=== PATIENT | female | born 1990 | race American Indian/Alaskan Native ===

== ENCOUNTER 2021-11-15 21:53 | Emergency (ER) | payer SELFPAY ==
[2021-11-15] MEDS ORDERED: ONDANSETRON 4 MG/2 ML INJ IV ONE (23:12)
[2021-11-15] MEDS ORDERED: SODIUM CHLORIDE 0.9% 1000 ML 1,000 ML IV ONE (23:12)
--- NOTE | 2021-11-15 23:15 | Emergency Department Report ---
<JUSTINO ROSALES - Last Filed: 11/16/21 03:23> ED General Adult HPI - General Chief complaint: Nausea/Vomiting/Diarrhea Stated complaint: POSS STOMACH VIRUS, NAUSEA, VOMITING Time Seen by Provider: 11/15/21 23:14 Source: patient, EMS Mode of arrival: Stretcher Limitations: No Limitations - History of Present Illness Initial comments: Patient 34-year-old female who presents with 4 days of nausea vomiting diarrhea. States treated at [facility] diagnosed with gastroenteritis 3 days ago. Patient states taking Zofran at home however symptoms are not improved. He states nocturnal fever no Tmax noted at home. No fever noted in triage today. Current symptoms include 4/10 generalized abdominal pain with cramping nausea vomiting and diarrhea. Patient states not tolerating p.o. intake. Patient denies any head denies history of GERD colitis or diverticulitis. Patient denies vaginal bleeding discharge dysuria frequency urgency. No history of gallstones no history of renal stones. - Related Data Previous Rx's Medication Instructions Recorded Last Taken Type Ferrous Sulfate [Feosol 325 MG tab] 325 mg PO BID #60 tablet 12/02/15 Unknown Rx Ibuprofen [Motrin 800 MG tab] 800 mg PO TID PRN #30 tablet 12/02/15 Unknown Rx oxyCODONE /ACETAMINOPHEN [Percocet 1 tab PO Q4HR #30 tablet 12/02/15 Unknown Rx 5/325 mg] Dicyclomine [Bentyl] 10 mg PO QID PRN #30 capsule 11/16/21 Unknown Rx Metoclopramide [Reglan] 10 mg PO TID PRN #30 tab 11/16/21 Unknown Rx diphenhydrAMINE [Benadryl CAP] 25 mg PO Q8HR PRN #30 capsule 11/16/21 Unknown Rx Allergies Allergy/AdvReac Type Severity Reaction Status Date / Time No Known Allergies Allergy Unverified 10/26/15 23:02 ED Review of Systems Constitutional: denies: chills, fever Eyes: denies: eye pain, eye discharge, vision change ENT: denies: ear pain, throat pain Respiratory: denies: cough, shortness of breath, wheezing Cardiovascular: denies: chest pain, palpitations Endocrine: no symptoms reported Gastrointestinal: abdominal pain, nausea, vomiting, diarrhea. denies: con stipation, hematemesis, melena, hematochezia Genitourinary: denies: urgency, dysuria, frequency, hematuria, discharge Musculoskeletal: denies: back pain, joint swelling, arthralgia Skin: denies: rash, lesions Neurological: denies: headache, weakness, paresthesias Psychiatric: denies: anxiety, depression Hematological/Lymphatic: denies: easy bleeding, easy bruising ED Past Medical Hx - Past Medical History Hx Hypertension: No Hx Congestive Heart Failure: No Hx Diabetes: No Hx Deep Vein Thrombosis: No Hx Renal Disease: No Hx Sickle Cell Disease: No Hx Seizures: No Hx Asthma: No Hx COPD: No Hx HIV: No - Social History Smoking Status: Never Smoker - Medications Home Medications: Home Medications Medication Instructions Recorded Confirmed Last Taken Type Ferrous Sulfate [Feosol 325 MG tab] 325 mg PO BID #60 tablet 12/02/15 Unknown Rx Ibuprofen [Motrin 800 MG tab] 800 mg PO TID PRN #30 tablet 12/02/15 Unknown Rx oxyCODONE /ACETAMINOPHEN [Percocet 1 tab PO Q4HR #30 tablet 12/02/15 Unknown Rx 5/325 mg] Dicyclomine [Bentyl] 10 mg PO QID PRN #30 capsule 11/16/21 Unknown Rx Metoclopramide [Reglan] 10 mg PO TID PRN #30 tab 11/16/21 Unknown Rx diphenhydrAMINE [Benadryl CAP] 25 mg PO Q8HR PRN #30 capsule 11/16/21 Unknown Rx ED Physical Exam - General Limitations: No Limitations General appearance: alert, in no apparent distress - Head Head exam: Present: normocephalic, normal inspection - Eye Eye exam: Present: normal appearance, PERRL, EOMI Pupils: Present: normal accommodation - ENT ENT exam: Present: mucous membranes moist - Neck Neck exam: Present: normal inspection, full ROM. Absent: tenderness - Respiratory Respiratory exam: Present: normal lung sounds bilaterally. Absent: respiratory distress, wheezes, rales, rhonchi, stridor - Cardiovascular Cardiovascular Exam: Present: regular rate, normal rhythm, normal heart sounds. Absent: systolic murmur, diastolic murmur, rubs, gallop - GI/Abdominal GI/Abdominal exam: Present: soft, tenderness (generalized ), normal bowel sounds. Absent: distended, guarding, rebound, rigid, bruit, hernia - Rectal Rectal exam: Present: deferred - Extremities Exam Extremities exam: Present: normal inspection, full ROM, normal capillary refill. Absent: tenderness - Back Exam Back exam: Present: normal inspection, full ROM. Absent: CVA tenderness (R), CVA tenderness (L) - Neurological Exam Neurological exam: Present: alert, oriented X3, CN II-XII intact, normal gait - Expanded Neurological Exam Expanded Patient oriented to: Present: person, place, time Speech: Present: fluid speech Motor strength exam: RUE: 5, LUE: 5, RLE: 5, LLE: 5 Best Eye Response ([place]): (4) open spontaneously Best Motor Response ([place]): (6) obeys commands Best Verbal Response ([place]): (5) oriented [place] Total: 15 - Psychiatric Psychiatric exam: Present: normal affect, normal mood - Skin Skin exam: Present: warm, dry, intact, normal color. Absent: rash ED Medical Decision Making - Lab Data Result diagrams: 11/15/21 23:16 11/15/21 23:16 - Radiology Data Radiology results: report reviewed, image reviewed CT ABDOMEN AND PELVIS WITH CONTRAST INDICATION / CLINICAL INFORMATION: Pt complains of abdominal pain with fever. TECHNIQUE: Axial CT images were obtained through the abdomen and pelvis after 100 cc Omnipaque [address] scans at this location are performed using CT dose reduction for ALARA by means of automated exposure control. COMPARISON: None available. FINDINGS: LOWER CHEST: Small subcentimeter hypodense lesions within the liver thought to reflect small cysts. Liver otherwise unremarkable. LIVER: No significant abnormality. GALLBLADDER: No significant abnormality. BILE DUCTS: No significant abnormality. SPLEEN: No significant abnormality. PANCREAS: No significant abnormality. ADRENALS: No significant abnormality. RIGHT KIDNEY / URETER: No significant abnormality. LEFT KIDNEY / URETER: No significant abnormality. STOMACH / DUODENUM / SMALL BOWEL: No significant abnormality. COLON: No significant abnormality. APPENDIX: No significant abnormality. PERITONEUM: No free air or free fluid are present within the abdomen or pelvis. LYMPH NODES: Borderline to minimally enlarged right inguinal lymph nodes uncertain significance. Minimally enlarged right pelvic side wall lymph nodes measuring 12 mm short axis. Right iliac lymph nodes borderline to minimally enlarged. AORTA / ARTERIES: No significant abnormality. IVC / VEINS: No significant abnormality. URINARY BLADDER: No significant abnormality. REPRODUCTIVE ORGANS: Mild prominence of the endometrial cavity likely physiologic. Uterus and ovaries demonstrate no acute findings. Trace amount of free fluid within the pelvis likely physiologic. ADDITIONAL ABDOMINAL/PELVIC FINDINGS: None. SKELETAL SYSTEM: No significant abnormality. IMPRESSION: 1. Right inguinal, right iliac, and right pelvic side wall adenopathy of uncertain clinical significance. Trace amount of free fluid within the pelvis may be physiologic. Correlation with physical exam and/or vaginal culture recommended. Otherwise, no acute findings within the abdomen or pelvis. Signer Name: Yomaira Weston II, MD Signed: 11/16/2021 1:29 AM Workstation Name: [id number] Transcribed By: REMEDIOS Dictated By: YOMAIRA WESTON II, MD Electronically Authenticated By: YOMAIRA WESTON II, MD Signed Date/Time: 11/16/21128 DD/ 1 TD/TT: - Medical Decision Making CT no gallstones no renal stones no soft tissue abnormalities. Patient advises symptoms are improved with medications given in ED. Patient now tolerating p.o. intake without nausea vomiting there is no fevers no chills. Patient will be DC'd home in stable condition at this time. Patient will follow-up primary care doctor in 2 to 3 days. Patient verbalized agreement and understanding with discharge plan. ED Disposition Clinical Impression: Mild dehydration Abdominal pain Qualifiers: Abdominal location: generalized Qualified Code(s): R10.84 - Generalized abdominal pain Disposition: HOME / SELF CARE / HOMELESS Is pt being admited?: No Does the pt Need Aspirin: No Condition: Stable Instructions: Abdominal Pain, Adult, [id number], Rehydration, Adult Additional Instructions: Take medication as prescribed, hydrate as directed. Follow-up with your doctor in 2 to 3 days. Return to emergency department for symptoms worsen. Prescriptions: diphenhydrAMINE [Benadryl CAP] 25 mg PO Q8HR PRN #30 capsule PRN Reason: Nausea And Vomiting Dicyclomine [Bentyl] 10 mg PO QID PRN #30 capsule PRN Reason: abdominal spasm Metoclopramide [Reglan] 10 mg PO TID PRN #30 tab PRN Reason: Nausea And Vomiting Referrals: LEAH PALMA MD [Staff Physician] - 3-5 Days Forms: Work/School Release Form(ED) Time of Disposition: 03:33 <LIDYA JOSEPH U - Last Filed: 11/20/21 19:03> ED Review of Systems ROS: Stated complaint: POSS STOMACH VIRUS, NAUSEA, VOMITING Other details as noted in HPI ED Course Vital Signs 11/15/21 11/16/21 21:59 05:14 Temperature 103.2 F H 99.5 F Pulse Rate 116 H 97 H Respiratory 20 18 Rate Blood Pressure 115/76 101/71 [Right] O2 Sat by Pulse 98 99 Oximetry ED Medical Decision Making - Lab Data Result diagrams: 11/15/21 23:16 11/15/21 23:16 - Medical Decision Making I have reviewed the PA/PROCESS DESCRIPTION WRITER's note and plan of care. I was available for consultation as needed at all times during the patient's visit in the emergency department but was not consulted on this case. Critical care attestation.: If time is entered above; I have spent that time in minutes in the direct care of this critically ill patient, excluding procedure time.
[2021-11-15] MEDS ORDERED: cefTRIAXone/NS 1 GM/50 ML 1 GM/50 ML BAG IV ONE (23:22)
--- NOTE | 2021-11-15 23:50 | XRay Report ---
CHEST 2 VIEWS INDICATION / CLINICAL INFORMATION: fever , tachy. COMPARISON: None available. FINDINGS: SUPPORT DEVICES: None. HEART / MEDIASTINUM: No significant abnormality. LUNGS / PLEURA: No significant pulmonary or pleural abnormality. No pneumothorax. BONES: No significant osseous abnormality. ADDITIONAL FINDINGS: No significant additional findings. IMPRESSION: 1. No active cardiopulmonary disease. Signer Name: Sathish Parsons II, MD Signed: 11/15/2021 11:46 PM Workstation Name: [id number]
[2021-11-16 00:09] LABS: Basophils % (Auto) 0.4 % (0.0-1.8); Hematocrit 33.8 % (30.3-42.9); Lymphocytes # (Auto) 0.5 K/mm3 (1.2-5.4); Mean Corpuscular HGB Conc 33 % (30-34); Mean Corpuscular Volume 77 fl (79-97); Monocytes # (Auto) 0.6 K/mm3 (0.0-0.8); Monocytes % (Auto) 9.2 % (0.0-7.3); Platelet Count 226 K/mm3 (140-440); Red Blood Count 4.42 M/mm3 (3.65-5.03); Red Cell Distribution Width 14.9 % (13.2-15.2)
[2021-11-16 00:35] LABS: Alanine Aminotransferase 44 units/L (7-56); Albumin 4.7 g/dL (3.9-5); Blood Urea Nitrogen 10 mg/dL (7-17); Calcium 8.9 mg/dL (8.4-10.2); Hemolysis Index 0
[2021-11-16 00:36] LABS: BUN/Creatinine Ratio 17
--- NOTE | 2021-11-16 01:34 | Cat Scan Report ---
CT ABDOMEN AND PELVIS WITH CONTRAST INDICATION / CLINICAL INFORMATION: Pt complains of abdominal pain with fever. TECHNIQUE: Axial CT images were obtained through the abdomen and pelvis after 100 cc Omnipaque [address] scans at this location are performed using CT dose reduction for ALARA by means of automated exposure control. COMPARISON: None available. FINDINGS: LOWER CHEST: Small subcentimeter hypodense lesions within the liver thought to reflect small cysts. L iver otherwise unremarkable. LIVER: No significant abnormality. GALLBLADDER: No significant abnormality. BILE DUCTS: No significant abnormality. SPLEEN: No significant abnormality. PANCREAS: No significant abnormality. ADRENALS: No significant abnormality. RIGHT KIDNEY / URETER: No significant abnormality. LEFT KIDNEY / URETER: No significant abnormality. STOMACH / DUODENUM / SMALL BOWEL: No significant abnormality. COLON: No significant abnormality. APPENDIX: No significant abnormality. PERITONEUM: No free air or free fluid are present within the abdomen or pelvis. LYMPH NODES: Borderline to minimally enlarged right inguinal lymph nodes uncertain significance. Mini albino enlarged right pelvic side wall lymph nodes measuring 12 mm short axis. Right iliac lymph nodes borderline to minimally enlarged. AORTA / ARTERIES: No significant abnormality. IVC / VEINS: No significant abnormality. URINARY BLADDER: No significant abnormality. REPRODUCTIVE ORGANS: Mild prominence of the endometrial cavity likely physiologic. Uterus and ovaries demonstrate no acute findings. Trace amount of free fluid within the pelvis likely physiologic. ADDITIONAL ABDOMINAL/PELVIC FINDINGS: None. SKELETAL SYSTEM: No significant abnormality. IMPRESSION: 1. Right inguinal, right iliac, and right pelvic side wall adenopathy of uncertain clinical significa nce. Trace amount of free fluid within the pelvis may be physiologic. Correlation with physical exam and/or vaginal culture recommended. Otherwise, no acute findings within the abdomen or pelvis. Signer Name: Sathish Parsons II, MD Signed: 11/16/2021 1:29 AM Workstation Name: [id number]
[2021-11-16 05:15] VITALS: BP 101/71
[2021-11-16 05:19] LABS: Bilirubin,Urine NEG (Negative); Blood,Urine NEG (Negative); Color,Urine Yellow (Yellow); Urobilinogen,Urine < 2.0 mg/dL (<2.0)
== END 2021-11-16 07:21 | disposition home or self-care (01) ==
LOC: ED 21:53
DX: E86.0 Dehydration (principal); R10.9 Unspecified abdominal pain
CPT/HCPCS: 36415; 71046; 74177; 80053; 81001; 82140; 83690; 85025; 87040; 96361; 96365; 96375; 99285; J0696; J2405; J7030; Q9967